=== PATIENT | male | born 1965 | race Caucasian/White ===

== ENCOUNTER 2024-09-05 12:11 | Emergency (ER) | payer SELFPAY ==
[~2024-09-05] VITALS: Ht 167.6 cm; Wt 70.3 kg
[2024-09-05 13:12] LABS: HEMOGLOBIN 11.5 g/dL (12.0-18.0); MCV 101.2 fl (81-99)
[2024-09-05 13:15] LABS: HEMATOCRIT 34.2 % (35.0-50.0); MCH 34.1 (27-36); MCHC 33.7 g/dl (30-36); PLATELET COUNT 412 K/uL (140-440); RBC 3.38 M/ul (4.3-5.7); RDW 14.1 (10.5-15.0)
[2024-09-05 13:31] LABS: BASOPHILS, MANUAL DIFF 3; EOSINOPHILS, MANUAL DIFF 5; LYMPHOCYTES, MANUAL DIFF 25; MONOCYTES, MANUAL DIFF 6; NEUTROPHILS, MANUAL DIFF 61
[2024-09-05 13:33] LABS: ALBUMIN 2.6 g/dL (3.4-5.0); ALBUMIN/GLOBULIN RATIO 0.6 (1.1-2.4); ANION GAP 15.3 (7-21); BILIRUBIN, TOTAL 14.4 ng/dL (0.2-1.0); BUN/CREATININE RATIO 16.66 (6.0-28.6); CALCIUM 9.4 mg/dL (8.5-10.1); CREATININE, SERUM 0.54 mg/dL (0.70-1.30); MAGNESIUM 1.7 mg/dL (1.8-2.4); POTASSIUM 3.3 mmol/L (3.5-5.1); PROTEIN, TOTAL 6.9 g/dL (6.4-8.2)
[2024-09-05 14:11] LABS: INR 0.88 (0.80-1.30); PROTIME 11.8 Sec (11.2-14.2)
[2024-09-05 18:54] VITALS: BP 118/72
== END 2024-09-05 18:51 | disposition left against medical advice (07) ==
LOC: ED 12:11
PROVIDERS: Internal Medicine
DX: K72.90 Hepatic failure, unspecified without coma (principal); K83.1 Obstruction of bile duct; K86.89 Other specified diseases of pancreas; N13.30 Unspecified hydronephrosis; Z79.82 Long term (current) use of aspirin; Z53.29 Procedure and treatment not carried out because of patient's decision for other reasons
CPT/HCPCS: 36415; 74177; 80053; 82140; 83735; 84484; 85025; 85610; 99285-25; Q9967